=== PATIENT | male | born 1990 | race Caucasian/White ===

== ENCOUNTER 2020-02-24 16:46 | Emergency (ER) | payer OTHER ==
[2020-02-24] MEDS ORDERED: LIDOCAINE 1% 10 ML VIAL INJ ONE (16:59)
[2020-02-24 17:04] VITALS: BP 164/107; TEMP 97.9; O2SAT 99
--- NOTE | 2020-02-24 18:01 | ED.PDOC ---
History of Present Illness - General Chief Complaint: Laceration Stated Complaint: laceration Time Seen by Provider: 02/24/20 16:59 Source: patient, RN notes reviewed, Vital Signs reviewed Additional Information: 29yo M no PMH with reportedly laceration to left side of the forehead after getting hit by "surfboard" while at [employer] today. Denies LOC, vomiting, injury to other location, or pain at other site. Reportedly irrigated the site, put in hydrogen peroxide, and placed "butterfly" bandages. No other complaints at this time. - History of Present Illness Allergies/Adverse Reactions: Allergies NO KNOWN ALLERGY Allergy (Verified 02/24/20 16:59) Home Medications: Ambulatory Orders Bacitracin (Topical) [Baciguent] 500 unit TOP BID 7 Days #10 ml 02/24/20 Review of Systems - Review of Systems Skin: States: lesions - left forehead laceration All other Systems: Reviewed and Negative Past Medical History (General) - Patient Medical History Hx Seizures: No Hx Stroke: No Hx Dementia: No Hx Asthma: No Hx of COPD: No Hx Cardiac Disorders: No Hx Congestive Heart Failure: No Hx Pacemaker: No Hx Hypertension: No Hx Thyroid Disease: No Hx Diabetes: No Hx Gastroesophageal Reflux: No Hx Renal Disease: No Hx Cancer: No Hx of HIV: No Hx Hepatitis C: No Hx MRSA: No Surgical History: no surgical history - Vaccination History Hx Tetanus, Diphtheria Vaccination: No Hx Influenza Vaccination: No Hx Pneumococcal Vaccination: No - Social History Hx Chewing Tobacco Use: No Hx Alcohol Use: Yes Hx Substance Use: No Hx Substance Use Treatment: No Hx Depression: Yes Feels Threatened In Home Enviroment: No Feels Threatened In a Relationship: No Hx Physical Abuse: No Hx Emotional Abuse: No Hx Suspected Abuse: No - Female History Patient is a Female of Child Bearing Age (10 -59 yrs old): No Family Medical History - Family History Father Family History: Unknown Living Status: Unknown Physical Exam - Physical Exam General Appearance: Alert, No apparent distress, Well Developed, Well Nourished Eye Exam: bilateral normal Ears, Nose, Throat: hearing grossly normal, normal ENT inspection, normal pharynx Neck: non-tender, full range of motion, supple Respiratory: lungs clear, normal breath sounds, no respiratory distress Cardiovascular/Chest: normal peripheral pulses, regular rate, rhythm, no edema, no murmur Back Exam: normal inspection Extremity: normal range of motion, non-tender, normal inspection 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 Plan for xray for fx/foreign body as needed, pain control PRN, wound care, and laceration repair in ED. Lac repaired without complication, and patient remained neurovascularly intact. No noted ocular involvement. Head without other injury noted, no reported LOC, and no focal or lateralizing deficit. ED warnings given (especially regarding wound care and risks of infection and/or dehiscence), wound care instructions given. F/u with PCP and for suture care. Patient and I wore masks for duration of encounter, and I maintained a distance of 6 feet except for those brief times need for physical exam. Institutional screening protocol for coronavirus performed in triage. Procedures - Laceration/Wound Repair Left Head Wound's Depth, Shape: linear Wound Explored: clean Anesthesia: 1% Lidocaine Volume Anesthetic (cc's): 1 Wound Repaired With: sutures Suture Size/Type: 5:0, vicryl rapide Number of Sutures: 6 Progress: Tolerated well without complication. Departure - Departure Clinical Impression: Laceration Time of Disposition: 18:04 Disposition: Discharge to Home or Self Care Condition: Good Departure Forms: ED Discharge - Pt. Copy, Patient Portal Self Enrollment Instructions: DI for Laceration Repair, How to Care for a Laceration After Repair, DI for Laceration Repair -- Simple Diet: resume usual diet Activity: increase activity as tolerated, no pushing/pulling with affected limb Referrals: Doctor, Your [Other] - 1-5 Days Prescriptions: Bacitracin (Topical) [Baciguent] 500 unit TOP BID 7 Days #10 ml Home Medications: Ambulatory Orders Bacitracin (Topical) [Baciguent] 500 unit TOP BID 7 Days #10 ml 02/24/20
== END 2020-02-24 18:10 | disposition home or self-care (01) ==
LOC: ER 16:46
DX: S01.112A Laceration without foreign body of left eyelid and periocular area, initial encounter (principal); V94.9XXA Unspecified water transport accident, initial encounter; Y92.828 Other wilderness area as the place of occurrence of the external cause